=== PATIENT | female | born 1975 | race African-American/Black ===

== ENCOUNTER 2017-09-25 19:20 | Emergency (ER) | payer OTHER ==
[2017-09-25] MEDS ORDERED: KETOROLAC 30 MG/ML INJ ONE (20:16)
--- NOTE | 2017-09-25 21:33 | RAD REPORT ---
EXAM DESCRIPTION: Trang Davis (2 Views)09/25/2017 8:53 pm CLINICAL HISTORY: Cough COMPARISON: None FINDINGS: The lungs appear clear of acute infiltrate. The heart is normal size IMPRESSION: No acute abnormalities displayed
--- NOTE | 2017-09-25 21:42 | ER ---
Nurse's Notes [facility] Name: Gabriela Allen Age: 41 yrs Sex: Female : 1975 Arrival Date: 09/25/2017 Time: 19:24 Bed External Waiting Private MD: Diagnosis: Strain of muscle and tendon of back wall of thorax Presentation: 09/25 19:55 Presenting complaint: Patient states: Right arm pain for 1 month that is better with aj massage. Transition of care: patient was not received from another setting of care. Onset of symptoms was August 20, 2017. Initial Sepsis Screen: Does the patient meet any 2 criteria? No. Patient's initial sepsis screen is negative. Does the patient have a suspected source of infection? No. Patient's initial sepsis screen is negative. Care prior to arrival: None. 19:55 Method Of Arrival: Ambulatory 19:55 Acuity: NIKI 3 aj Triage Assessment: 19:57 General: Appears in no apparent distress. comfortable, Behavior is calm, cooperative, aj appropriate for age. Pain: Complains of pain in right arm Pain currently is 10 out of 10 on a pain scale. Neuro: Level of Consciousness is awake, alert, obeys commands, Oriented to person, place, time, situation, Appropriate for age. Respiratory: Airway is patent Respiratory effort is even, unlabored, Respiratory pattern is regular, symmetrical. Derm: Skin is intact, is healthy with good turgor, Skin is pink, warm \T\ dry. normal. Musculoskeletal: Reports pain in right arm. 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 - Social history:: Smoking status: Patient/guardian denies using tobacco. Screenin:04 Abuse screen: Denies threats or abuse. Nutritional screening: No deficits noted. tl2 Tuberculosis screening: No symptoms or risk factors identified. Fall Risk None identified. Assessment: 20:04 General: Appears in no apparent distress. uncomfortable, Behavior is calm, cooperative, tl2 appropriate for age. Pain: Complains of pain in right arm Pain radiates to right arm Pain currently is 10 out of 10 on a pain scale. Quality of pain is described as aching, throbbing. Neuro: Level of Consciousness is awake, alert, obeys commands, Oriented to person, place, time, situation. Cardiovascular: Denies chest pain. Respiratory: Airway is patent Respiratory effort is even, unlabored, Respiratory pattern is regular, symmetrical. GI: No signs and/or symptoms were reported involving the gastrointestinal system. : No signs and/or symptoms were reported regarding the genitourinary system. Derm: Skin is pink, warm \T\ dry. Musculoskeletal: Circulation, motion, and sensation intact. Range of motion: limited in right shoulder Swelling absent. 21:25 Reassessment: Patient appears in no apparent distress at this time. Patient and/or tl2 family updated on plan of care and expected duration. Pain level reassessed. Patient is alert, oriented x 3, equal unlabored respirations, skin warm/dry/pink. Patient states feeling better. 22:30 Reassessment: Patient appears in no apparent distress at this time. Patient and/or tl2 family updated on plan of care and expected duration. Pain level reassessed. Patient is alert, oriented x 3, equal unlabored respirations, skin warm/dry/pink. Pt verbalized understanding of discharge instructions, need for follow up and prescription usage. Vital Signs: 19:57 BP 182 / 109; Pulse 71; Resp 16; Temp 97.7; Pulse Ox 100% on R/A; Weight 69.4 kg; aj Height 5 ft. 7 in. (170.18 cm); Pain 10/10; 20:34 BP 183 / 107; Pulse 66; Resp 18; Pulse Ox 100% on R/A; tl2 21:25 BP 183 / 105; Pulse 70; Resp 18; Pulse Ox 98% on R/A; tl2 22:30 BP 176 / 103; Pulse 61; Resp 18; Pulse Ox 100% on R/A; Pain 6/10; tl2 19:57 Body Mass Index 23.96 (69.40 kg, 170.18 cm) aj ED Course: 19:24 Patient arrived in ED. es 19:56 Triage completed. aj 19:57 Arm band placed on right wrist. Patient placed in an exam room. aj 20:04 Patient has correct armband on for positive identification. Bed in low position. Call tl2 light in reach. Side rails up X 1. 20:05 Saad Oconnor MD is Attending Physician. [facility] 20:33 Jolene Villareal, RN is Primary Nurse. tl2 20:54 Chest Pa And Lat (2 Views) XRAY In Process Unspecified. EDMS 20:54 X-ray completed. Patient tolerated procedure well. kp1 20:54 Patient moved back from radiology. kp1 22:30 No provider procedures requiring assistance completed. Patient did not have IV access tl2 during this emergency room visit. Administered Medications: 20:19 Drug: TORadol 60 mg Route: IM; Site: right gluteus; tl1 23:16 Follow up: Response: No adverse reaction; Pain is decreased tl2 Outcome: 21:41 Discharge ordered by . [facility] 22:30 Discharged to home ambulatory. tl2 22:30 Condition: stable 22:30 Discharge instructions given to patient, Instructed on discharge instructions, follow up and referral plans. medication usage, Demonstrated understanding of instructions, follow-up care, medications, Prescriptions given X 4. 23:17 Patient left the ED. tl2 Signatures: Dispatcher [employer] EDXiomy Payne, RN Saad Wise MD MD cha Salyer, Edna es Lasagna, Tonya RN RN tl1 Jolene Villareal RN RN tl2 Mamta Francisco kp1 Corrections: (The following items were deleted from the chart) 19:59 19:55 Acuity: NIKI 4 sujata ernst
--- NOTE | 2017-09-25 21:42 | EDPHYS ---
Physician Documentation [facility] Name: Gabriela Allen Age: 41 yrs Sex: Female : 1975 Arrival Date: 09/25/2017 Time: 19:24 Bed External Waiting Private MD: ED Physician Saad Oconnor HPI: 09/25 20:12 This 41 yrs old Black Female presents to ER via Ambulatory with complaints of Arm Pain. stacey 20:12 The patient or guardian complains of decreased range of motion, pain, that is acute. 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 - Social history:: Smoking status: Patient/guardian denies using tobacco. ROS: 20:12 Constitutional: Negative for fever, chills, and weight loss, Eyes: Negative for injury, stacey pain, redness, and discharge, ENT: Negative for injury, pain, and discharge, Neck: Negative for injury, pain, and swelling, Cardiovascular: Negative for chest pain, palpitations, and edema, Respiratory: Negative for shortness of breath, cough, wheezing, and pleuritic chest pain, Abdomen/GI: Negative for abdominal pain, nausea, vomiting, diarrhea, and constipation, Back: Negative for injury and pain, : Negative for injury, bleeding, discharge, and swelling, Skin: Negative for injury, rash, and discoloration, Neuro: Negative for headache, weakness, numbness, tingling, and seizure, Psych: Negative for depression, anxiety, suicide ideation, homicidal ideation, and hallucinations, Allergy/Immunology: Negative for hives, rash, and allergies, Endocrine: Negative for neck swelling, polydipsia, polyuria, polyphagia, and marked weight changes, Hematologic/Lymphatic: Negative for swollen nodes, abnormal bleeding, and unusual bruising. 20:12 MS/extremity: Positive for decreased range of motion, pain, of the right scapular area and right subscapular area. Exam: 20:12 Constitutional: This is a well developed, well nourished patient who is awake, alert, stacey and in no acute distress. Head/Face: Normocephalic, atraumatic. Eyes: Pupils equal round and reactive to light, extra-ocular motions intact. Lids and lashes normal. Conjunctiva and sclera are non-icteric and not injected. Cornea within normal limits. Periorbital areas with no swelling, redness, or edema. ENT: Nares patent. No nasal discharge, no septal abnormalities noted. Tympanic membranes are normal and external auditory canals are clear. Oropharynx with no redness, swelling, or masses, exudates, or evidence of obstruction, uvula midline. Mucous membranes moist. Neck: Trachea midline, no thyromegaly or masses palpated, and no cervical lymphadenopathy. Supple, full range of motion without nuchal rigidity, or vertebral point tenderness. No Meningismus. Chest/axilla: Normal chest wall appearance and motion. Nontender with no deformity. No lesions are appreciated. Cardiovascular: Regular rate and rhythm with a normal S1 and S2. No gallops, murmurs, or rubs. Normal PMI, no JVD. No pulse deficits. Respiratory: Lungs have equal breath sounds bilaterally, clear to auscultation and percussion. No rales, rhonchi or wheezes noted. No increased work of breathing, no retractions or nasal flaring. Abdomen/GI: Soft, non-tender, with normal bowel sounds. No distension or tympany. No guarding or rebound. No evidence of tenderness throughout. Skin: Warm, dry with normal turgor. Normal color with no rashes, no lesions, and no evidence of cellulitis. MS/ Extremity: Pulses equal, no cyanosis. Neurovascular intact. Full, normal range of motion. Neuro: Awake and alert, GCS 15, oriented to person, place, time, and situation. Cranial nerves II-XII grossly intact. Motor strength 5/5 in all extremities. Sensory grossly intact. Cerebellar exam normal. Normal gait. Psych: Awake, alert, with orientation to person, place and time. Behavior, mood, and affect are within normal limits. 20:12 Back: pain, that is mild, that is moderate, ROM is painful, normal spinal alignment noted, CVA tenderness, is absent, vertebral tenderness, is not appreciated, muscle spasm, is appreciated in the right scapular area and right subscapular area. 20:16 Musculoskeletal/extremity: DVT Exam: No signs of deep vein thrombosis. no pain, no stacey swelling, no tenderness, negative Homans' sign noted on exam, no appreciated bluish discoloration, no erythema, no increased warmth. Vital Signs: 19:57 BP 182 / 109; Pulse 71; Resp 16; Temp 97.7; Pulse Ox 100% on R/A; Weight 69.4 kg; aj Height 5 ft. 7 in. (170.18 cm); Pain 10/10; 20:34 BP 183 / 107; Pulse 66; Resp 18; Pulse Ox 100% on R/A; tl2 21:25 BP 183 / 105; Pulse 70; Resp 18; Pulse Ox 98% on R/A; tl2 22:30 BP 176 / 103; Pulse 61; Resp 18; Pulse Ox 100% on R/A; Pain 6/10; tl2 19:57 Body Mass Index 23.96 (69.40 kg, 170.18 cm) aj MDM: 20:05 Patient medically screened. [facility] 20:12 Data reviewed: vital signs, nurses notes, radiologic studies, plain films. [facility] 09/25 20:12 Order name: Chest Pa And Lat (2 Views) XRAY; Complete Time: 21:41 [facility] Administered Medications: 20:19 Drug: TORadol 60 mg Route: IM; Site: right gluteus; tl1 23:16 Follow up: Response: No adverse reaction; Pain is decreased tl2 Disposition: 09/25/17 21:41 Discharged to Home. Impression: Strain of muscle and tendon of back wall of thorax. - Condition is Stable. - Discharge Instructions: Muscle Strain, Muscle Pain, Adult, Muscle Strain, [id number]. - Prescriptions for Ibuprofen 600 mg Oral Tablet - take 1 tablet by ORAL route every 8 hours As needed take with food; 21 tablet. Tylenol- Codeine #3 300-30 mg Oral Tablet - take 2 tablet by ORAL route every 6 hours As needed; 30 tablet. Valium 2 mg Oral Tablet - take 1 tablet by ORAL route every 6 hours As needed; 20 tablet. Medrol (Donovan) 4 mg Oral Tablets, Dose Pack - take 1 tablet by ORAL route as directed - follow package instructions; 1 packet. - Medication Reconciliation Form, Thank You Letter, Antibiotic Education, Prescription Opioid Use form. - Follow up: Private Physician; When: 2 - 3 days; Reason: Recheck today's complaints, Continuance of care, Re-evaluation by your physician. - Problem is new. - Symptoms have improved. Signatures: Dispatcher [employer] Xiomy Lieberman RN Saad Wise MD MD cha Lasagna, Tonya RN RN tl1 Jolene Villareal RN RN tl2
== END 2017-09-25 23:17 | disposition home or self-care (01) ==
LOC: ER 19:20
DX: S29.012A Strain of muscle and tendon of back wall of thorax, initial encounter (principal); X58.XXXA Exposure to other specified factors, initial encounter; Y93.9 Activity, unspecified
CPT/HCPCS: 71046; 96372; 99283

== ENCOUNTER 2018-11-26 01:08 | Emergency (ER) | payer OTHER ==
--- OUTSIDE RECORDS SUMMARY | 2018-11-26 01:10 | XMS REPORT ---
:1975 Author Organization eClinicalWorks Care Team Providers Name Role Phone Mary Jane Montanez Provider Role Unavailable Allergies No Known Allergies Problems Problem Type Condition Code Onset Dates Condition Status Assessment Cough R05 Active Problem Anxiety F41.9 Active Problem Paresthesia of skin R20.2 Active Problem Essential hypertension I10 Active Problem Hypertensive urgency I16.0 Active Problem Bilateral carpal tunnel syndrome G56.03 Active Problem Intractable migraine with aura with G43.111 Active status migrainosus Medications Medication Code Code Instructions Start End Date Status Dosage System Date Azithromycin ND 49885425206 250 MG Orally August 27, Active 2 tablets Once a day 2018 on the first day, then 1 tablet daily for 4 days Benzonatate [facility] 81097534219 200 MG Orally August 27, Active 1 capsule Three times a 2019 day Results No Known Results Summary Purpose eClinicalWorks Submission
--- OUTSIDE RECORDS SUMMARY | 2018-11-26 01:10 | XMS REPORT ---
:1975 Author Organization eClinicalWorks Care Team Providers Name Role Mary Jane Chase Provider Role Unavailable Allergies No Known Allergies Problems Problem Type Condition Code Onset Dates Condition Status Problem Anxiety F41.9 Active Problem Paresthesia of skin R20.2 Active Problem Essential hypertension I10 Active Problem Hypertensive urgency I16.0 Active Problem Bilateral carpal tunnel syndrome G56.03 Active Problem Intractable migraine with aura with G43.111 Active status migrainosus Medications No Known Medications Results No Known Results Summary Purpose eClinicalWorks Submission
--- OUTSIDE RECORDS SUMMARY | 2018-11-26 01:10 | XMS REPORT ---
:1975 Author Organization eClinicalWorks Care Team Providers Name Role Phone Rao, Na Provider Role Unavailable Allergies, Adverse Reactions, Alerts Substance Reaction Event Type N.K.D.A. Info Not Available Non Drug Allergy Problems Problem Type Condition Code Onset Dates Condition Status Assessment Intractable migraine with aura with G43.111 Active status migrainosus Assessment Hypertensive urgency I16.0 Active Problem Seasonal allergic rhinitis, J30.2 Active unspecified trigger Problem Anxiety F41.9 Active Problem Essential hypertension I10 Active Problem Intractable migraine with aura with G43.111 Active status migrainosus Problem Hypertensive urgency I16.0 Active Problem Paresthesia of skin R20.2 Active Problem Bilateral carpal tunnel syndrome G56.03 Active Assessment Blood tests for routine general Z00.00 Active physical examination Assessment Anxiety F41.9 Active Assessment Multiple joint pain M25.50 Active Assessment Anesthesia of skin R20.0 Active Assessment Bilateral carpal tunnel syndrome G56.03 Active Assessment Paresthesia of skin R20.2 Active Medications Medication Code Code Instructions Start End Date Status Dosage System Date Lisinopril-Hydr [facility] 63444687103 20-12.5 MG August Active 1 tablet ochlorothiazide Orally Once a 2018 day Medrol [facility] 62027851110 4 MG Orally August Active as directed daily 2018 Propranolol HCl [facility] 69563889093 40 MG Orally August Active 1 tablet Once a day 2018 Results No Known Results Summary Purpose eClinicalWorks Submission
--- OUTSIDE RECORDS SUMMARY | 2018-11-26 01:10 | XMS REPORT ---
:1975 Author Organization eClinicalWorks Care Team Providers Name Role Phone Tarik Mary Jane Provider Role Unavailable Allergies, Adverse Reactions, Alerts [...] Medications Medication Code Code Instructions Start End Status Dosage System Date Date Lisinopril-[place] [facility] 67843797281 20-12.5 MG August Active 1 tablet chlorothiazide Orally Once a 2018 day Propranolol HCl [facility] 69492381219 40 MG Orally August Active 1 tablet Once a day 2018 Azithromycin [facility] 65050659268 250 MG Orally August Active 2 tablets Once a day 2018 on the first day, then 1 tablet daily for 4 days Benzonatate [facility] 93642788800 200 MG Orally August Active 1 capsule Three times a 2018 day Results Name Result Date Reference Range Unit Abnormality Flag Chest Pa And Lat (2 Views) Summary Purpose eClinicalWorks Submission
--- OUTSIDE RECORDS SUMMARY | 2018-11-26 01:11 | XMS REPORT ---
:1975 Author Organization eClinicalWorks Care Team Providers Name Role Phone Rao, Na Provider Role Unavailable Allergies No Known Allergies Problems Problem Type Condition Code Onset Dates Condition Status Problem Seasonal allergic rhinitis, J30.2 Active unspecified trigger Problem Anxiety F41.9 Active Problem Essential hypertension I10 Active Problem Intractable migraine with aura with G43.111 Active status migrainosus Problem Hypertensive urgency I16.0 Active Problem Paresthesia of skin R20.2 Active Problem Bilateral carpal tunnel syndrome G56.03 Active Medications No Known Medications Results No Known Results Summary Purpose eClinicalWorks Submission
--- OUTSIDE RECORDS SUMMARY | 2018-11-26 01:11 | XMS REPORT ---
:1975 Author Organization eClinicalWorks Care Team Providers Name Role Phone Rao, Na Provider Role Unavailable Allergies, Adverse Reactions, Alerts Substance Reaction Event Type N.K.D.A. Info Not Available Non Drug Allergy Problems Problem Type Condition Code Onset Dates Condition Status Assessment Prediabetes R73.03 Active Assessment Essential hypertension I10 Active Problem Seasonal allergic rhinitis, J30.2 Active unspecified trigger Problem Anxiety F41.9 Active Problem Essential hypertension I10 Active Problem Intractable migraine with aura with G43.111 Active status migrainosus Problem Hypertensive urgency I16.0 Active Problem Paresthesia of skin R20.2 Active Problem Bilateral carpal tunnel syndrome G56.03 Active Assessment Anesthesia of skin R20.0 Active Assessment Paresthesia of skin R20.2 Active Assessment Anxiety F41.9 Active Assessment Multiple joint pain M25.50 Active Assessment Seasonal allergic rhinitis, J30.2 Active unspecified trigger Medications Medication Code Code Instructions Start End Status Dosage System Date Date Benzonatate [facility] 17639847874 200 MG Orally August Active 1 capsule Three times a 2018 day Azithromycin [facility] 76564406361 250 MG Orally August Active 2 tablets Once a day 2018 on the first day, then 1 tablet daily for 4 days Lisinopril-[place] [facility] 28556796770 20-12.5 MG August Active 1 tablet chlorothiazide Orally Once a 2018 day Zyrtec Allergy ND 18177385950 10 MG Orally August Active 1 tablet Once a day 2018 Flonase [facility] 09967366086 50 MCG/ACT August Active 1 spray in Nasally Once a 2018 each day nostril Propranolol HCl ND 18617973057 10 MG Orally Active 1 tablet twice a day Results No Known Results Summary Purpose eClinicalWorks Submission
[2018-11-26] MEDS ORDERED: HYDROCOD 2.5mg-ACETAMIN 108mg/5mL Soln ONE (02:02)
--- NOTE | 2018-11-26 02:42 | ER ---
Nurse's Notes [facility] Name: Gabriela Allen Age: 43 yrs Sex: Female : 1975 Arrival Date: 11/26/2018 Time: 01:09 Bed 13 Private MD: Diagnosis: Superficial foreign body of right ear-insect Presentation: 11/26 01:15 Presenting complaint: Patient states: I have a bug in my right ear. Transition of care: jb4 patient was not received from another setting of care. Onset of symptoms was November 26, 2018. Risk Assessment: Do you want to hurt yourself or someone else? Patient reports no desire to harm self or others. Initial Sepsis Screen: Does the patient meet any 2 criteria? HR > 90 bpm. Yes Does the patient have a suspected source of infection? No. Patient's initial sepsis screen is negative. Care prior to arrival: None. 01:15 Method Of Arrival: Ambulatory jb4 01:15 Acuity: NIKI 4 jb4 Triage Assessment: 01:16 General: Appears in no apparent distress. uncomfortable, Behavior is cooperative, jb4 appropriate for age, anxious. Pain: Complains of pain in right ear Pain does not radiate. Pain currently is 0 out of 10 on a pain scale. EENT: Ear canal w/ foreign body noted from right ear. Neuro: Level of Consciousness is awake, Oriented to person, place, time, situation. Cardiovascular: Patient's skin is warm and dry. Respiratory: Airway is patent Respiratory effort is even, unlabored, Respiratory pattern is regular, symmetrical. GI: No signs and/or symptoms were reported involving the gastrointestinal system. : No signs and/or symptoms were reported regarding the genitourinary system. Derm: Skin is intact, Skin is dry, Skin is normal, Skin temperature is warm. Musculoskeletal: Circulation, motion, and sensation intact. Historical: - Allergies: 01:16 No Known Allergies; jb4 - Home Meds: 01:16 None [Active]; jb4 - PMHx: 01:16 Hypertension; jb4 - PSHx: 01:16 None; jb4 - Immunization history:: Adult Immunizations up to date. - Social history:: Smoking status: Patient/guardian denies using tobacco, Patient/guardian denies using alcohol. - Ebola Screening: : No symptoms or risks identified at this time. Screenin:15 Abuse screen: Denies threats or abuse. Nutritional screening: No deficits noted. jb4 Tuberculosis screening: No symptoms or risk factors identified. Fall Risk None identified. Assessment: 01:15 General: see triage assessment.. jb4 02:43 Reassessment: Patient appears in no apparent distress at this time. Patient and/or jb4 family updated on plan of care and expected duration. Pain level reassessed. Patient is alert, oriented x 3, equal unlabored respirations, skin warm/dry/pink. 02:55 Reassessment: Patient appears in no apparent distress at this time. Patient is alert, jb4 oriented x 3, equal unlabored respirations, skin warm/dry/pink. PT ambulated out of the ED with a steady gate, verbalized understanding of d/c and follow up instrucitons.. Vital Signs: 01:16 BP 175 / 114; Pulse 111; Resp 20; Temp 98.4(O); Pulse Ox 100% on R/A; Weight 66.22 kg jb4 (R); Height 5 ft. 6 in. (167.64 cm); Pain 0/10; 02:00 BP 175 / 111; Pulse 103; Resp 18; Pulse Ox 100% on R/A; jb4 02:55 BP 176 / 108; Pulse 87; Resp 18; Pulse Ox 100% on R/A; jb4 01:16 Body Mass Index 23.56 (66.22 kg, 167.64 cm) jb4 ED Course: 01:09 Patient arrived in ED. ds1 01:10 Basilia Heard FNP-C [facility]. snw 01:10 Saad Oconnor MD is Attending Physician. snw 01:15 Carlos Montiel, DAYO is Primary Nurse. jb4 01:15 Patient has correct armband on for positive identification. Bed in low position. Call [facility] light in reach. Side rails up X 1. Pulse ox on. NIBP on. 01:16 Triage completed. jb4 01:16 Arm band placed on right wrist. jb4 02:30 Assist provider with foreign body removal of an insect from right ear canal. using jb4 alligator clamps, Set up for procedure. Performed by Basilia HERNANDEZ Patient tolerated well. Procedure unsuccessful. 03:01 Patient did not have IV access during this emergency room visit. jb4 Administered Medications: 02:00 Drug: Lortab Liquid 15 ml Route: PO; jb4 02:30 Follow up: Response: No adverse reaction; Pain is decreased jb4 Outcome: 02:41 Discharge ordered by . deena 03:01 Discharged to home ambulatory, with family. jb4 03:01 Condition: stable 03:01 Discharge instructions given to patient, Instructed on discharge instructions, follow up and referral plans. medication usage, Demonstrated understanding of instructions, follow-up care, medications, Prescriptions given X 2. 03:02 Patient left the ED. jb4 Signatures: Basilia Heard, EYEWEAR MANUFACTURING TECH-C [employer]YEWEAR MANUFACTURING TECH-[place] Stephanie Ledbetter ds1 Carlos Montiel, RN RN jb4
--- NOTE | 2018-11-26 02:42 | EDPHYS ---
Physician Documentation [facility] Name: Gabriela Allen Age: 43 yrs Sex: Female : 1975 Arrival Date: 11/26/2018 Time: 01:09 Bed 13 Private MD: DEMETRIUS Physician Saad Oconnor HPI: 11/26 02:08 This 43 yrs old Black Female presents to ER via Ambulatory with complaints of Bug in snw Ear. 02:08 The patient presents with a foreign body sensation, presumably from an insect, pain. snw The complaints affect the right ear. Onset: The symptoms/episode began/occurred acutely. Modifying factors: The symptoms are alleviated by nothing. Associated signs and symptoms:. Severity of symptoms: At their worst the symptoms were moderate severe. The patient has not experienced similar symptoms in the past. It is unknown whether or not the patient has recently seen a physician. Historical: - Allergies: 01:16 No Known Allergies; jb4 - Home Meds: 01:16 None [Active]; jb4 - PMHx: 01:16 Hypertension; jb4 - PSHx: 01:16 None; jb4 - Immunization history:: Adult Immunizations up to date. - Social history:: Smoking status: Patient/guardian denies using tobacco, Patient/guardian denies using alcohol. - Ebola Screening: : No symptoms or risks identified at this time. ROS: 02:04 Constitutional: Negative for fever, chills, and weight loss, Eyes: Negative for injury, snw pain, redness, and discharge, Neck: Negative for injury, pain, and swelling, Cardiovascular: Negative for chest pain, palpitations, and edema, Respiratory: Negative for shortness of breath, cough, wheezing, and pleuritic chest pain, Abdomen/GI: Negative for abdominal pain, nausea, vomiting, diarrhea, and constipation, Back: Negative for injury and pain, : Negative for injury, bleeding, discharge, and swelling, MS/Extremity: Negative for injury and deformity, Skin: Negative for injury, rash, and discoloration, Neuro: Negative for headache, weakness, numbness, tingling, and seizure. 02:04 ENT: Positive for ear pain, bug in ear (right). Exam: 02:04 Constitutional: This is a well developed, well nourished patient who is awake, alert, snw and in no acute distress. Head/Face: Normocephalic, atraumatic. Eyes: Pupils equal round and reactive to light, extra-ocular motions intact. Lids and lashes normal. Conjunctiva and sclera are non-icteric and not injected. Cornea within normal limits. Periorbital areas with no swelling, redness, or edema. Neck: Trachea midline, no thyromegaly or masses palpated, and no cervical lymphadenopathy. Supple, full range of motion without nuchal rigidity, or vertebral point tenderness. No Meningismus. Chest/axilla: Normal chest wall appearance and motion. Nontender with no deformity. No lesions are appreciated. Cardiovascular: Regular rate and rhythm with a normal S1 and S2. No gallops, murmurs, or rubs. Normal PMI, no JVD. No pulse deficits. Respiratory: Lungs have equal breath sounds bilaterally, clear to auscultation and percussion. No rales, rhonchi or wheezes noted. No increased work of breathing, no retractions or nasal flaring. Abdomen/GI: Soft, non-tender, with normal bowel sounds. No distension or tympany. No guarding or rebound. No evidence of tenderness throughout. Back: No spinal tenderness. No costovertebral tenderness. Full range of motion. Skin: Warm, dry with normal turgor. Normal color with no rashes, no lesions, and no evidence of cellulitis. MS/ Extremity: Pulses equal, no cyanosis. Neurovascular intact. Full, normal range of motion. Neuro: Awake and alert, GCS 15, oriented to person, place, time, and situation. Cranial nerves II-XII grossly intact. Motor strength 5/5 in all extremities. Sensory grossly intact. Cerebellar exam normal. Normal gait. Psych: Awake, alert, with orientation to person, place and time. Behavior, mood, and affect are within normal limits. 02:04 ENT: Ear canal(s): foreign body, an insect, in the right external ear canal, TM's: not visable, because of blood, because of a foreign body, Nose: is normal, Mouth: is normal, Posterior pharynx: is normal, Voice: is normal. Vital Signs: 01:16 BP 175 / 114; Pulse 111; Resp 20; Temp 98.4(O); Pulse Ox 100% on R/A; Weight 66.22 kg jb4 (R); Height 5 ft. 6 in. (167.64 cm); Pain 0/10; 02:00 BP 175 / 111; Pulse 103; Resp 18; Pulse Ox 100% on R/A; jb4 02:55 BP 176 / 108; Pulse 87; Resp 18; Pulse Ox 100% on R/A; jb4 01:16 Body Mass Index 23.56 (66.22 kg, 167.64 cm) jb4 Procedures: 02:06 Foreign Body Removal: an insect, from the right ear canal, by using a curette, using a snw hemostat, unsuccessful, Dr. Oconnor attempted as well with forcep, curette, and irrigation/suction. MDM: 01:10 Patient medically screened. snw 02:43 Data reviewed: vital signs, nurses notes. Data interpreted: Pulse oximetry: on room air snw is 100 %. Interpretation: normal. Counseling: I had a detailed discussion with the patient and/or guardian regarding: the historical points, exam findings, and any diagnostic results supporting the discharge/admit diagnosis, the presence of at least one elevated blood pressure reading (>120/80) during this emergency department visit, the need for outpatient follow up, to return to the emergency department if symptoms worsen or persist or if there are any questions or concerns that arise at home. Response to treatment: There is no appreciated change of the patient's symptoms at this time, the patient's symptoms have mildly improved after treatment. Special discussion: Based on the history and exam findings, there is no indication for further emergent testing or inpatient evaluation. I discussed with the patient/guardian the need to see the ENT specialist for further evaluation of the symptoms. Administered Medications: 02:00 Drug: Lortab Liquid 15 ml Route: PO; jb4 02:30 Follow up: Response: No adverse reaction; Pain is decreased jb4 Disposition: 13:58 Co-signature as Attending Physician, Saad Oconnor MD I agree with the assessment and stacey plan of care. Disposition: 11/26/18 02:41 Discharged to Home. Impression: Superficial foreign body of right ear - insect. - Condition is Stable. - Discharge Instructions: Ear Foreign Body. - Prescriptions for Augmentin 875- 125 mg Oral Tablet - take 1 tablet by ORAL route every 12 hours for 10 days; 20 tablet. Ultram 50 mg Oral Tablet - take 1 tablet by ORAL route every 6 hours As needed; 20 tablet. - Medication Reconciliation Form, Thank You Letter, Antibiotic Education, Prescription Opioid Use form. - Follow up: Private Physician; When: 2 - 3 days; Reason: Recheck today's complaints, Continuance of care, Re-evaluation by your physician. Follow up: Emergency Department; When: As needed; Reason: Worsening of condition. - Notes: Dr. Bryan [phone], Dr. Harkins [phone] Signatures: Saad Oconnor MD MD cha Therrien, Shelly, CAR OILER-C CAR OILER-Csnw Carlos Montiel, RN RN jb4 Corrections: (The following items were deleted from the chart) 03:02 02:41 11/26/2018 02:41 Discharged to Home. Impression: Superficial foreign body of jb4 right ear - insect. Condition is Stable. Forms are Medication Reconciliation Form, Thank You Letter, Antibiotic Education, Prescription Opioid Use. Follow up: Private Physician; When: 2 - 3 days; Reason: Recheck today's complaints, Continuance of care, Re-evaluation by your physician. Follow up: Emergency Department; When: As needed; Reason: Worsening of condition. snw
== END 2018-11-26 03:02 | disposition home or self-care (01) ==
LOC: ER 01:08
PROC: 09C3XZZ Extirpation of Matter from Right External Auditory Canal, External Approach (ICD-10-PCS; principal; 2018-11-26)
DX: T16.1XXA Foreign body in right ear, initial encounter (principal); I10 Essential (primary) hypertension
CPT/HCPCS: 99284

== ENCOUNTER 2020-04-27 17:15 | Emergency (ER) | payer OTHER ==
--- OUTSIDE RECORDS SUMMARY | 2020-04-27 17:17 | XMS REPORT | Continuity of Care Document ---
:[address] [facility] t Address [address] [place] [address] Care Team Providers Name Role Phone Unavailable Unavailable Unavailable Problems Condition Condition Condition Status Onset Resolution Last Treating Co mments Source Name Details Category Date Date Treatment Clinician Date Anxiety Anxiety Problem [facility] Paresthesi Paresthesi Problem Active [facility] skin a [facility] Essential Essential Problem Active [facility] hypertensi hypertensi [facility] Hypertensi Hypertensi Problem Active [facility] ve urgency ve urgency [facility] Bilateral Bilateral Problem Active [facility] carpal carpal [facility] - tunnel tunnel [facility] syndrome syndrome l [facility] Intractabl Intractabl Problem Active [facility] e migraine e migraine Chetna kes - with aura with aura Syed porsha with with l status status Outpati migrainosu migrainosu en t s s Clinics Seasonal Seasonal Problem Active [facility] allergic allergic [facility] - rhinitis, rhinitis, Syed porsha unspecifie unspecifie l d trigger d trigger Outp ati ent Clinics Prediabete Prediabete Diagnosis Active [facility] Constipati Constipati Problem Active [facility] on, on, [facility] - unspecifie unspecifie Me moria d d l constipati constipati Ou tpati on type on type ent Clinics Allergies, Adverse Reactions, Alerts This patient has no known allergies or adverse reactions. Medications Ordered Filled Start Stop Current Ordering Indication Dosage Frequency Signature Comments Components Source Medication Medication Date Date Medication? Clinician (SIG) Name Name Escitalopra Escitalopra Yes Na Rao [address] [facility] m Oxalate m Oxalate 8-05 [facility] - 00:[facility]: [facility] Amlodipine Amlodipine Yes Na Rao [address] [facility] Besylate Besylate 12-27 - 00:00: [facility] 00 [facility] Azithromyci Azithromyci Yes Na Rao [address] [facility] n n 3- on the [facility] - 00:00: first day, [facility]oria 00 then 1 l tablet Outpati daily for ent 4 days Clinics Benzonatate Benzonatate Yes Na Rao [address] [facility] 3- [facility] - 00:[facility]: [facility] Propranolol Propranolol Yes Na Rao [address] [facility] HCl HCl [facility] Zyrtec Ztec Yes Na Rao [address] [facility] Allergy Allergy [facility] Propranolol Propranolol Yes Na Rao [address] [address] HCl HCl [facility] Lisinopril- Lisinopril- Yes Na Rao [address] [facility] [address] Hydrochloro Hydrochloro L ukes - thiazide [facility] Lisinopril- Lisinopril- Yes Na Rao [address] [facility] Hydrochloro Hydrochloro L ukes - thiazide thiazide [facility] Flonase Flonase Yes Na Rao [address] [facility] each [facility] - nostril [facility] Flonase Flonase Yes Na Rao [address] [facility] Metoprolol Metoprolol Yes Na Rao [address] [facility] [address] Tartrate Tartrate with food Chetna s - [facility] Amlodipine Amlodipine Yes Na Rao TAKE [address] [facility] Besylate Besylate TABLET BY Chetna kes - MOUTH [facility] EVERYDAY l AT BEDTIME [facility] Procedures This patient has no known procedures. Encounters Start End Encounter Admission Attending Care Care Encounter Source Date/Time Date/Time Type Type Clinicians Facility Department ID 2020-02-15 2020-02-15 Outpatient Marcelino Rubio [id number] [facility] 10:20:00 10:20:[address] [facility] 2020-01-11 2020-01-11 [facility] [id number] 09:40:00 09:40:00 [place] [facility] [employer] s - [facility] Family Medicine l Medicine Outpati ent Clinics 2019-12-30 2019-12-30 [facility] [id number] 14:00:00 14:00:00 [place] [employer] [facility] - Drive [facility] Medicine l Medicine Outpati ent Clinics 2019-12-28 2019-12-28 [facility] [id number] 08:40:00 08:40:00 t [place] [facility] [employer] [facility] - Drive [facility] Medicine l Medicine Outpati ent Clinics 2019-11-29 2019-11-29 [facility] [id number] 15[facility]13:00 15:13:00 [place] [employer] [facility] - Drive [facility] Medicine l Medicine Outpati ent Clinics 2019-11-28 2019-11-28 [facility] [id number] 14:20:00 14:20:00 [place] [employer] - Drive [facility] Medicine l Medicine Outpati ent Clinics 2019-04-12 2019-04-12 [facility] [id number] [address] 02:22:00 02:22:00 [place] [employer] [facility] - Drive [facility] Medicine l Medicine Outpati ent Clinics 2019-04-08 2019-04-08 [facility] [id number] 13:20:00 13:20:00 [place] [employer] - Drive [facility] Medicine l Medicine Outpati ent Clinics 2019-03-30 2019-03-30 [facility] [id number] 14:42:00 14:42:00 [place] [employer] - Drive [facility] Medicine l Medicine Outpati ent Clinics 2018-09-09 2018-09-09 [facility] [id number] 15:47:00 15:47:00 [place] [employer] - Drive [facility] Medicine l Medicine Outpati ent Clinics 2018-08-31 2018-08-31 [facility] [id number] 14:45:00 14:45:00 [place] [employer] [facility] - Drive [facility] Outpat[facility] ent Clinics 2018-08-27 2018-08-27 [place] [id number] [address] 18:50:00 18:50:00 t [facility] - Care [facility] 2018-08-27 2018-08-27 [place] [id number] 18:33:00 18:33:00 t [facility] - Care Clinic [facility] 2018-08-27 2018-08-27 [place] [id number] 17:15:00 17:15:00 t Ur[facility] Care [facility] 2018-08-27 2018-08-27 [place] [facility] [id number] 16:15:00 16:15:00 t Urgent Urgent Care L [facility] - Care Clinic [facility] 2018-08-17 2018-08-17 Outpatient Marcelino [place] [id number] 09:30:00 09:30:00 t [facility] Results This patient has no known results.
--- OUTSIDE RECORDS SUMMARY | 2020-04-27 17:18 | XMS REPORT ---
:1975 Author Organization [employer] Care Team Providers Name Role Phone Rao, Na Provider Role Unavailable Allergies, Adverse Reactions, Alerts Substance Reaction Event Type N.K.D.A. Info Not Available Non Drug Allergy Problems Problem Type Condition Code Onset Dates Condition Statu s Assessment Hypertensive urgency I16.0 Active Problem Hypertensive urgency I16.0 Active Assessment Constipation, unspecified K59.00 Ac tive constipation type Assessment Seasonal allergic rhinitis, J30.2 Active unspecified trigger Assessment Prediabetes R73.03 Active Assessment Anxiety F41.9 Active Problem Essential hypertension I10 Activ e Problem Seasonal allergic rhinitis, J30.2 Active unspecified trigger Problem Constipation, unspecified K59.00 Ac tive constipation type Problem Bilateral carpal tunnel syndrome G56.03 Active Problem Intractable migraine with aura with G43.111 Active status migrainosus Problem Anxiety F41.9 Active Problem Paresthesia of skin R20.2 Active Medications Medication Code Code Instructions Start End Status Dosage System Date Date Propranolol HCl [facility] 82725137012 10 MG Orally Active 1 tablet twice a day Lisinopril-Hydr [facility] 45192863127 20-12.5 MG Active 1 tablet ochlorothiazide Orally Once a day Lisinopril-Hydr [facility] 83598511534 20-12.5 MG Active 1 tablet ochlorothiazide Orally Once a day Metoprolol [facility] 45732605724 100 MG Orally Active 1 t ablet Tartrate Twice a day with food Azithromycin [facility] 65798513938 250 MG Orally August Active 2 tablets Once a day 2018 on the first day, then 1 tablet daily for 4 days Flonase [facility] 26884664327 50 MCG/ACT Active 1 spray i n Nasally Once a each day nostril Flonase [facility] 93695409530 50 MCG/ACT Active 1 spray i n Nasally Once a each day nostril Escitalopram ND 32735889785 5 MG Orally Active 1 t ablet Oxalate Once a day Amlodipine [facility] 40994067968 10 MG Active TAKE 1 Besylate TABLET BY MOUTH EVERYDAY AT BEDTIME Amlodipine [facility] 52878648671 10 MG Orally Active 1 ta blet Besylate Once a day at bedtime Benzonatate [facility] 50580264963 200 MG Orally August Active 1 capsule Three times a 2018 day Zyrtec Allergy [facility] 84008544637 10 MG Orally Active 1 tablet Once a day Propranolol HCl [facility] 40481576020 10 MG Orally Inactiv e 1 tablet twice a day Results No Known Results Summary Purpose [employer] Submission
[2020-04-27 20:07] LABS: Urine Blood NEGATIVE (NEG); Urine Glucose NEGATIVE (NEG); Urine Protein NEGATIVE (NEG); Urine Specific Gravity 1.025 (1.005-1.030); Urine pH 7.5 (5.0-7.0)
--- NOTE | 2020-04-27 20:07 | RAD REPORT ---
EXAM DESCRIPTION: CT - Stone Protocol - 04/27/2020 7:54 pm CLINICAL HISTORY: right flank pain, hx of hysterectomy COMPARISON: No comparisons TECHNIQUE: Axial 5 mm thick images were obtained without oral or IV contrast. The [id number] span s the entirety of the system including uppermost abdomen and lung bases. All CT scans are performed using dose optimization technique as appropriate and may include automated exposure control or mA/KV adjustment according to patient size. FINDINGS: No hydronephrosis is present and no obstructing ureteral calculi. No suspicious renal mass es. Isodense masses and pyelonephritis are not excluded on a stone protocol CT scan. No significant a drenal finding. No urinary bladder suspicious finding. No uterine or ovarian abnormality seen. Imaged portions of the liver, spleen and pancreas show no suspicious findings on non-contrast imaging . No gallbladder or biliary tree abnormality identified. No suspicious bowel findings. No suspicion for appendicitis. There is moderate stool volume throughou t the colon. No hernia, mass or bulky lymphadenopathy noted. No free air, free fluid or inflammatory stranding. No significant bony abnormality. IMPRESSION: Negative CT stone protocol study. Isodense masses and pyelonephritis are not excluded on stone protocol technique.
[2020-04-27 20:24] LABS: Absolute Lymphocytes (CBC) 1.8 K/uL (0.7-4.9); Basophils % 1.3 % (0-1.3); Hematocrit 39.6 % (36.0-45.0); Lymphocytes % 39.1 % (15.3-44.8); MPV 7.9 fL (7.6-11.3)
[2020-04-27 20:42] LABS: Bilirubin Direct 0.1 mg/dL (0-0.2); Bilirubin Total 0.3 mg/dL (0.2-1.0); Potassium 3.8 mmol/L (3.5-5.1); Protein, Total 7.8 g/dL (6.4-8.2)
--- NOTE | 2020-04-27 21:52 | EDPHYS ---
Physician Documentation [facility] Name: Gabriela Allen Age: 44 yrs Sex: Female : 1975 Arrival Date: 04/27/2020 Time: 17:18 Bed 5 Private MD: ED Physician Stevie Hsieh HPI: 04/27 19:09 This 44 yrs old Black Female presents to ER via Ambulatory with complaints of Side Pain.jmm 19:09 The patient presents with pain that is acute. The symptoms are located in the low back. jmm Onset: The symptoms/episode began/occurred acutely. The pain does not radiate. Associated signs and symptoms: Pertinent negatives: fever, vomiting. This is a 44 year old female with a history of htn that presents to the ED with complaints of right flank, right lower back pain which radiates across the back. patient denies fever, vomiting, abdominal pain, diarrhea. . [employer]: 17:48 LMP N/A - Hysterectomy ss Historical: - Allergies: 17:48 No Known Allergies; ss - Home Meds: 17:48 UNKNOWN HTN MEDICATION [Active]; ss - PMHx: 17:48 Hypertension; ss - PSHx: 17:49 Hysterectomy; ss - Immunization history:: Adult Immunizations up to date. - Social history:: Smoking status: Patient denies any tobacco usage or history of. ROS: 19:09 Constitutional: Negative for fever, chills, and weight loss, Cardiovascular: Negative jmm for chest pain, palpitations, and edema, Respiratory: Negative for shortness of breath, cough, wheezing, and pleuritic chest pain, Abdomen/GI: Negative for abdominal pain, nausea, vomiting, diarrhea, and constipation. 19:09 Back: Positive for pain at rest, pain with movement. 19:09 All other systems are negative. Exam: 19:09 Constitutional: This is a well developed, well nourished patient who is awake, alert, jmm and in no acute distress. Head/Face: atraumatic. Eyes: EOMI, no conjunctival erythema appreciated ENT: Moist Mucus Membranes Neck: Trachea midline, Supple Chest/axilla: Normal chest wall appearance and motion. Cardiovascular: Regular rate and rhythm. No edema appreciated Respiratory: Normal respirations, no respiratory distress appreciated 19:09 Skin: General appearance color normal MS/ Extremity: Moves all extremities, no obvious deformities appreciated, no edema noted to the lower extremities Neuro: Awake and alert, normal gait Psych: Behavior is normal, Mood is normal, Patient is cooperative and pleasant 19:09 Abdomen/GI: Inspection: abdomen appears normal, Bowel sounds: normal, Palpation: abdomen is soft and non-tender, in all quadrants. 19:09 Back: CVA tenderness, that is moderate, is noted on the right. Vital Signs: 17:46 BP 188 / 113; Pulse 77; Resp 14; Temp 97.7(TE); Pulse Ox 99% on R/A; Weight 68.04 kg; ss Height 5 ft. 8 in. (172.72 cm); Pain 0/10; 20:45 BP 187 / 116; Pulse 74; Resp 18; Pulse Ox 100% ; Pain 3/10; rv 20:52 BP 163 / 103; Pulse 81; Resp 18; Pulse Ox 100% on R/A; rv 22:05 BP 151 / 85; Pulse 76; Resp 16; Pulse Ox 99% ; rr5 17:46 Body Mass Index 22.81 (68.04 kg, 172.72 cm) ss MDM: 19:45 Patient medically screened. [facility] 21:50 Data reviewed: vital signs, nurses notes. Counseling: I had a detailed discussion with [facility] the patient and/or guardian regarding: the historical points, exam findings, and any diagnostic results supporting the discharge/admit diagnosis, lab results, radiology results, the need for outpatient follow up, to return to the emergency department if symptoms worsen or persist or if there are any questions or concerns that arise at home. ED course: Patient is alert and non toxic in appearance in the ED. CT is negative. Patient is advised to follow up with pcp and otherwise given strict return precautions. Patient understood and agrees with the plan of care. . 04/27 19:09 Order name: Urine Dipstick--Ancillary (enter results); Complete Time: 20:08 dm5 04/27 19:46 Order name: Basic Metabolic Panel; Complete Time: 21:22 [facility] 04/27 19:46 Order name: CBC with Diff; Complete Time: 20:31 [facility] 04/27 19:46 Order name: Hepatic Function; Complete Time: 21:22 [facility] 04/27 19:46 Order name: Lipase; Complete Time: 21:22 [facility] 04/27 19:46 Order name: IV Saline Lock; Complete Time: 20:17 [facility] 04/27 19:46 Order name: Labs collected and sent; Complete Time: 20:17 [facility] 04/27 19:46 Order name: CT Stone Protocol; Complete Time: 20:08 [facility] Administered Medications: 21:54 Drug: morphine 4 mg {Note: rass 0.} Route: IVP; Site: right antecubital; rv 22:05 Follow up: Response: No adverse reaction; Pain is decreased; RASS: Alert and Calm (0) rr5 21:54 Drug: Zofran (Ondansetron) 4 mg Route: IVP; Site: right antecubital; rv 22:05 Follow up: Response: No adverse reaction rr5 Disposition: 04/28 06:30 Co-signature as Attending Physician, Stevie Hsieh MD. 7 Disposition: 04/27/20 21:51 Discharged to Home. Impression: Flank Pain. - Condition is Stable. - Discharge Instructions: Flank Pain, Adult. - Prescriptions for orphenadrine citrate 100 mg Oral Tablet Sustained Release - take 1 tablet by ORAL route 2 times per day As needed; 20 tablet. - Medication Reconciliation Form, Thank You Letter, Antibiotic Education, Prescription Opioid Use form. - Follow up: Private Physician; When: 2 - 3 days; Reason: Recheck today's complaints, Continuance of care, Re-evaluation by your physician. Signatures: Dispatcher [employer] EDMS Levi Sanchez PA PA [facility] Claire Terrazas RN RN Salvatore Mosley RN RN rv Roque, Raymond, RN RN rr5 Stevie Hsieh MD MD 7 Corrections: (The following items were deleted from the chart) 04/27 17:49 17:48 PSHx: None; ss ss 22:13 21:51 04/27/2020 21:51 Discharged to Home. Impression: Flank Pain. Condition is Stable. rr5 Forms are Medication Reconciliation Form, Thank You Letter, Antibiotic Education, Prescription Opioid Use. Follow up: Private Physician; When: 2 - 3 days; Reason: Recheck today's complaints, Continuance of care, Re-evaluation by your physician. [facility]
--- NOTE | 2020-04-27 21:52 | ER ---
Nurse's Notes [facility] Name: Gabriela Allen Age: 44 yrs Sex: Female : 1975 Arrival Date: 04/27/2020 Time: 17:18 Bed 5 Private MD: Diagnosis: Flank Pain Presentation: 04/27 17:46 Chief complaint: Patient states: sharp, intermittent R flank pain that began yesterday. ss Denies N/V/D. Coronavirus screen: Client denies travel out of the [place] in the last 14 days. Ebola Screen: Patient denies exposure to infectious person. Patient denies travel to an Ebola-affected area in the 21 days before illness onset. Initial Sepsis Screen: Does the patient meet any 2 criteria? No. Patient's initial sepsis screen is negative. Does the patient have a suspected source of infection? No. Patient's initial sepsis screen is negative. Risk Assessment: Do you want to hurt yourself or someone else? Patient reports no desire to harm self or others. Onset of symptoms was April 26, 2020. 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 - Social history:: Smoking status: Patient denies any tobacco usage or history of. Screenin:45 Abuse screen: Denies threats or abuse. Denies injuries from another. Nutritional rv screening: No deficits noted. Tuberculosis screening: No symptoms or risk factors identified. Fall Risk None identified. Assessment: 20:00 General: Appears comfortable, Behavior is calm, cooperative. rv 20:00 Pain: Complains of pain in right side Pain currently is 0 out of 10 on a pain scale. rv 20:00 Neuro: Level of Consciousness is awake, alert, obeys commands, Oriented to person, rv place, time, situation. 20:00 Cardiovascular: Patient's skin is warm and dry. Respiratory: Airway is patent rv Respiratory effort is even, unlabored, Breath sounds are clear bilaterally. : Denies burning with urination. Derm: Skin is intact. 20:17 Reassessment: patient denies pain at the moment. rv 21:30 Reassessment: Patient appears in no apparent distress at this time. Patient is alert, rr5 oriented x 3, equal unlabored respirations, skin warm/dry/pink. 22:10 Reassessment: Patient appears in no apparent distress at this time. Patient is alert, rr5 oriented x 3, equal unlabored respirations, skin warm/dry/pink. discharge instruction given and explained without complaint made Patient states feeling better. Patient states symptoms have improved. Vital Signs: 17:46 BP 188 / 113; Pulse 77; Resp 14; Temp 97.7(TE); Pulse Ox 99% on R/A; Weight 68.04 kg; ss Height 5 ft. 8 in. (172.72 cm); Pain 0/10; 20:45 BP 187 / 116; Pulse 74; Resp 18; Pulse Ox 100% ; Pain 3/10; rv 20:52 BP 163 / 103; Pulse 81; Resp 18; Pulse Ox 100% on R/A; rv 22:05 BP 151 / 85; Pulse 76; Resp 16; Pulse Ox 99% ; rr5 17:46 Body Mass Index 22.81 (68.04 kg, 172.72 cm) ED Course: 17:18 Patient arrived in ED. ds1 17:48 Triage completed. ss 17:49 Arm band placed on left wrist. ss 19:28 Levi Sanchez PA is PHCP. m 19:28 Stevie Hsieh MD is Attending Physician. jmm 19:40 Salvatore Mosley RN is Primary Nurse. rv 19:55 CT Stone Protocol In Process Unspecified. EDMS 20:00 Patient has correct armband on for positive identification. Bed in low position. Call rv light in reach. Side rails up X 1. Pulse ox on. NIBP on. 20:17 Initial lab(s) drawn, by me, sent to lab. Inserted saline lock: 20 gauge in right rv antecubital area, using aseptic technique. Blood collected. 22:10 No provider procedures requiring assistance completed. IV discontinued, intact, rr5 bleeding controlled, No redness/swelling at site. Pressure dressing applied. Administered Medications: 21:54 Drug: morphine 4 mg {Note: rass 0.} Route: IVP; Site: right antecubital; rv 22:05 Follow up: Response: No adverse reaction; Pain is decreased; RASS: Alert and Calm (0) rr5 21:54 Drug: Zofran (Ondansetron) 4 mg Route: IVP; Site: right antecubital; rv 22:05 Follow up: Response: No adverse reaction rr5 Outcome: 21:51 Discharge ordered by . maryjane 22:10 Discharged to home ambulatory. rr5 22:10 Condition: stable 22:10 Discharge instructions given to patient, Instructed on discharge instructions, follow up and referral plans. medication usage, Demonstrated understanding of instructions, follow-up care, medications, Prescriptions given X 1. 22:13 Patient left the ED. rr5 Signatures: Dispatcher [employer] EDMS Levi Sanchez PA PA jmm Sanford, Demi ds1 Claire Terrazas RN RN ss Salvatore Mosley RN RN rv Stalin Swain RN RN rr5 Corrections: (The following items were deleted from the chart) 17:49 17:48 PSHx: None; ss
[2020-04-27] MEDS ORDERED: ONDANSETRON 4 MG/2 ML VIAL ONE (22:05)
[2020-04-27] MEDS ORDERED: MORPHINE 4 MG/ML SYR ONE (22:05)
[2020-04-28 08:36] VITALS: TEMP 97.7
[2020-04-28 08:39] VITALS: O2SAT 100
[2020-04-28 08:40] VITALS: BP 163/103
== END 2020-04-27 22:13 | disposition home or self-care (01) ==
LOC: ER 17:15
DX: R10.9 Unspecified abdominal pain (principal); I10 Essential (primary) hypertension
CPT/HCPCS: 85025; 80048; 36415; 80076; 81003; 83690; 76377; 74176; 96375; 96374; 99284; J2405